=== PATIENT | female | born 1935 | race Asian ===

== ENCOUNTER 2021-08-29 09:47 | Emergency (ER) | payer MEDICARE, OTHER ==
[~2021-08-29] VITALS: Ht 144.8 cm; Wt 66.2 kg
--- NOTE | 2021-08-29 10:00 | NUR ---
TO ER BED 16, BIBRA 79 FROM HOME,C/O BURNING SENSATION WHEN URINATING SINCE HER LITHOTRIPSY 08/24/21, PATIENT ALSO COMPLAIN ABOUT RIGHT THIGH PAIN, AAOX3, BREATHING EVEN AND NON LABORED, CONNECTED TO MONITOR, AWAITING MD HERNANDEZ
--- NOTE | 2021-08-29 10:05 | NUR ---
SALINE LOCK ESTABLSIHED, BLOOD DRAWN, AND PICKED UP BY LAB
--- NOTE | 2021-08-29 10:05 | NUR ---
SALINE LOCK ESTABLSIHED, BLOOD DRAWN, AND PICKED UP BY LAB
[2021-08-29 10:41] LABS: BASOPHILS # (AUTO) 0.1 K/uL (0.0-0.2); BASOPHILS % (AUTO) 0.5 % (0.0-2.0); EOSINOPHILS % (AUTO) 2.8 % (0.0-6.0); HEMATOCRIT 40 % (33-45); HEMOGLOBIN 13.5 g/dL (11.5-14.8); LYMPHOCYTES % (AUTO) 8.6 % (20.0-44.0); MEAN CORPUSCULAR HGB CONC 34 g/dl (31.0-36.0); MEAN CORPUSCULAR VOLUME 93 fL (82-100); MONOCYTES # (AUTO) 1.4 K/uL (0.1-1.30); MONOCYTES % (AUTO) 11.1 % (2.0-12.0); NEUTROPHILS # (AUTO) 9.4 K/uL (1.8-8.9); PLATELET COUNT (AUTO) 251 K/uL (150-450); RED BLOOD CELL COUNT(AUTO) 4.27 MIL/uL (4.0-5.2); WHITE BLOOD COUNT (AUTO) 12.2 K/uL (4.3-11.0)
[2021-08-29 11:08] LABS: CALCIUM, SERUM 9.2 mg/dL (8.5-10.1); CREATININE 0.7 mg/dL (0.6-1.3); POTASSIUM 3.2 mmol/L (3.5-5.1)
[2021-08-29 11:13] LABS: ALBUMIN 3.5 g/dL (3.4-5.0); BILIRUBIN,DIRECT 0.2 mg/dL (0.0-0.2); BILIRUBIN,TOTAL 0.5 mg/dL (0.2-1.0); TOTAL PROTEIN, SERUM 7.9 g/dL (6.4-8.2)
[2021-08-29 13:46] LABS: BILIRUBIN,URINE NEGATIVE (NEGATIVE); COLOR,URINE YELLOW (YELLOW); LEUKOCYTE ESTERASE ,URINE MODERATE (NEGATIVE); NITRITE, URINE NEGATIVE (NEGATIVE); PROTEIN,URINE 100 mg/dl (NEGATIVE); UGLUCOSE NEGATIVE (NEGATIVE); UROBILINOGEN,URINE 0.2 EU/dL (0.2)
--- NOTE | 2021-08-29 14:04 | NUR ---
PT SAYS NEEDS EYE MEDICATION FROM PRE FABRICATOR. PRE FABRICATOR CALLED.
--- NOTE | 2021-08-29 14:04 | NUR ---
PT SAYS NEEDS EYE MEDICATION FROM PUBLIC HOUSING INTERVIEWER. PUBLIC HOUSING INTERVIEWER CALLED.
--- NOTE | 2021-08-29 14:05 | NUR ---
PRODUCT SAFETY ENGINEER [phone]
--- NOTE | 2021-08-29 14:05 | NUR ---
[employer] SPECIAL AGENT [phone]
[2021-08-29] MEDS ORDERED: CIPROFLOXACIN HCL 500 MG TABLET ONE (14:23)
[2021-08-29] MEDS ORDERED: HYDROCODONE/APAP 5/325MG TABLET ONE (14:23)
[2021-08-29] MEDS ORDERED: HYDROCODONE/APAP 5/325MG TABLET PO ONE (14:30)
[2021-08-29] MEDS ORDERED: CIPROFLOXACIN HCL 250 MG TABLET PO ONE (14:30)
--- NOTE | 2021-08-29 14:42 | NUR ---
PT ALLERGIC TO CIPRO AND NORCO. DC / NON ADMIN ORDER AND WASTED WITH RN TO WITNESS. JOCELYN BARNES AWARE.
--- NOTE | 2021-08-29 14:42 | NUR ---
PT ALLERGIC TO CIPRO AND NORCO. DC / NON ADMIN ORDER AND WASTED WITH RN TO WITNESS. JOCELYN BARNES AWARE.
[2021-08-29] MEDS ORDERED: TRAMADOL HCL 50 MG TABLET ONE (14:52)
[2021-08-29] MEDS ORDERED: TRAMADOL HCL 50 MG TABLET PO ONE (15:00)
--- NOTE | 2021-08-29 15:08 | NUR ---
BS 149, MADE AWARE
--- NOTE | 2021-08-29 15:08 | NUR ---
BS 149, MADE AWARE
[2021-08-29] MEDS ORDERED: TRAM50TA2 PO (15:31)
--- NOTE | 2021-08-29 15:57 | NUR ---
Bladder Scan of > 999ml. Notiefied Sosa BARNES with verbal orders for F/C
--- NOTE | 2021-08-29 15:57 | NUR ---
Bladder Scan of > 999ml. Notiefied Sosa BARNES with verbal orders for F/C
--- NOTE | 2021-08-29 16:27 | NUR ---
YU AVENDAÑO AT BEDSIDE
--- NOTE | 2021-08-29 16:27 | NUR ---
YU AVENDAÑO AT BEDSIDE
[2021-08-29 16:36] LABS: BACTERIA,URINE Few /HPF (None Seen); MUCUS,URINE Few /LPF (None Seen); RBC,URINE TOO NUMEROUS TO COUN /HPF (0-2); SQUAMOUS EPITHELIAL CELL,UR Few /HPF (None Seen)
--- NOTE | 2021-08-29 17:44 | NUR ---
Patient discharged to home in stable condition. Written and verbal after care instructions given. Patient verbalizes understanding of instruction. DC VIA W/C
--- NOTE | 2021-08-29 17:44 | NUR ---
PRESCRIPTION GIVEN TO PT; VERBALIZED UNDERSTANDING
--- NOTE | 2021-08-29 17:44 | NUR ---
PRESCRIPTION GIVEN TO PT; VERBALIZED UNDERSTANDING
--- NOTE | 2021-08-29 17:44 | NUR ---
Patient discharged to home in stable condition. Written and verbal after care instructions given. Patient verbalizes understanding of instruction. DC VIA W/C
[2021-08-29 17:49] VITALS: BP 132/68
== END 2021-08-29 17:49 | disposition home or self-care (01) ==
LOC: ER 09:50
DX: N23 Unspecified renal colic (principal); R33.9 Retention of urine, unspecified; M79.604 Pain in right leg; I10 Essential (primary) hypertension; E11.9 Type 2 diabetes mellitus without complications; Z88.8 Allergy status to other drugs, medicaments and biological substances; Z88.1 Allergy status to other antibiotic agents; Z88.6 Allergy status to analgesic agent; Z88.2 Allergy status to sulfonamides; Z60.2 Problems related to living alone
CPT/HCPCS: 36415; 73552; 80048-TC; 80076-TC; 81001; 83690-TC; 85025-TC; 87086-TC; 93971-TC